=== PATIENT | male | born 1965 | race Caucasian/White ===

== ENCOUNTER 2018-06-16 11:26 | Emergency (ER) | payer BC ==
[2018-06-16 11:41] VITALS: BP 138/100
--- NOTE | 2018-06-16 12:22 | UC ---
Back Pain HPI - HPI Summary HPI Summary: 52 year old male with 8 day history of right low back pain that radiates down his right leg to the level of his knee. States pain began approximately 2 days after shoveling snow. Describes pain as constant sharp pain. He has been taking ibuprofen 800mg every 6 hours with some relief. State he has also taken some of his 's hydrocodone-acetaminophen for severe pain but never more than once a day which has provided some adequate relief from the pain. Reports also used stretching exercises and ice with some improvement in symptoms. He sought treatment from chiropractor once but did not feel this was beneficial. Denies fever, chills, abdominal pain, nausea, vomiting, dysuria, frequency, urgency, hematuria, or loss of bowel or bladder control. - History of Current Complaint Chief Complaint: UCBackPain Stated Complaint: BACK PAIN Time Seen by Provider: 06/16/18 11:56 Pain Intensity: 3 - Allergies/Home Medications Allergies/Adverse Reactions: Allergies Allergy/AdvReac Type Severity Reaction Status Date / Time No Known Allergies Allergy Verified 06/16/18 11:41 Home Medications: Home Medications Atorvastatin* [Lipitor*] 20 mg PO DAILY 06/16/18 [History Confirmed 06/16/18] PMH/Surg Hx/FS Hx/Imm Hx Endocrine History: Dyslipidemia GI/ History: Gastroesophageal Reflux - Surgical History Surgical History: None Surgery Procedure, Year, and Place: right knee reconstruction - Family History Known Family History: Positive: Non-Contributory - Social History Occupation: Employed Full-time Lives: With Family Alcohol Use: Weekly Substance Use Type: None Smoking Status (MU): Never Smoked Tobacco Review of Systems All Other Systems Reviewed And Are Negative: Yes Constitutional: Negative: Fever, Chills Skin: Negative: Rash Respiratory: Negative: Shortness Of Breath, Cough Cardiovascular: Negative: Palpitations, Chest Pain Gastrointestinal: Negative: Abdominal Pain, Vomiting, Diarrhea, Nausea Genitourinary: Negative: Dysuria, Hematuria, Frequency, Urgency Motor: Negative: Weakness Neurovascular: Positive: Decreased Sensation Musculoskeletal: Positive: Other: - See HPI Neurological: Negative: Headache Is Patient Immunocompromised?: No Physical Exam - Summary Physical Exam Summary: GENERAL APPEARANCE: Well developed, well nourished, alert and cooperative, and appears to be in no acute distress. NECK: Neck supple, non-tender without lymphadenopathy. CARDIAC: Normal S1 and S2. No S3, S4 or murmurs. Rhythm is regular. There is no peripheral edema, cyanosis or pallor. Extremities are warm and well perfused. Capillary refill is less than 2 seconds. No carotid bruits. LUNGS: Clear to auscultation and percussion without rales, rhonchi, wheezing or diminished breath sounds. ABDOMEN: Positive bowel sounds. Soft, nondistended, nontender. No guarding or rebound. No masses or splenohepatomegally. No CVA tenderness. MUSKULOSKELETAL: ROM intact to all extremities. No joint erythema or tenderness. Normal muscular development. Normal gait. BACK: Examination of the spine reveals normal gait and posture, no spinal deformity, symmetry of spinal muscles, without tenderness, decreased range of motion or muscular spasm. EXTREMITIES: No significant deformity or joint abnormality. No edema. Peripheral pulses intact. No varicosities. NEUROLOGICAL: Strength symmetric and intact throughout. Reflexes 2+ throughout. Decreased sensation to anterior right upper leg. SKIN: Skin normal color, texture and turgor with no lesions or eruptions. Vital Signs: Initial Vital Signs Temp 98.1 F 06/16/18 11:37 Pulse 62 06/16/18 11:37 Resp 18 06/16/18 11:37 BP 138/100 06/16/18 11:37 Pulse Ox 100 06/16/18 11:37 Back Pain Course/Dx - Course Course Of Treatment: 52 year old male with 8 day history of right low back pain that radiates down his right leg to the level of his knee. States pain began approximately 2 days after shoveling snow. Describes pain as constant sharp pain. He has been taking ibuprofen 800mg every 6 hours with some relief. State he has also taken some of his 's hydrocodone-acetaminophen for severe pain but never more than once a day which has provided some adequate relief from the pain. Reports also used stretching exercises and ice with some improvement in symptoms. He sought treatment from chiropractor once but did not feel this was beneficial. Denies fever, chills, abdominal pain, nausea, vomiting, dysuria, frequency, urgency, hematuria, or loss of bowel or bladder control. Afebrile. Exam unremarkable except for some decreased sensation to his anterior right upper leg. Recommend continued conservative treatment with NSAIDs and Ice/Heat. Will provide him with a short term prescription for hydrocodone-acetaminophen PRN severe pain. The [facility] [employer] [facility] was consulted and safe to prescribe. Reference #: [id number]. He was given a referral to PT for evaluation and treatment. He is to follow up with his PCP or contact the [facility] Physician Referral Service to establish with a PCP locally if symptoms persist. Warning symptoms were reveiwed. Verbalizes understanding and agrees with POC. - Differential Dx/Diagnosis Differential Diagnosis/HQI/PQRI: Herniated Disc, Strain Provider Diagnosis: Sciatica of right side Discharge - Sign-Out/Discharge Documenting (check all that apply): Patient Departure All imaging exams completed and their final reports reviewed: No Studies - Discharge Plan Condition: Stable Disposition: HOME Prescriptions: Hydrocodone/Acetaminophen [Hydrocodone-Acetamin 5-325 mg] 1 each PO Q8HR PRN # 15 tablet MDD 3 PRN Reason: Severe Pain Naproxen [Naproxen 500 mg tab] 500 mg PO Q12HR #30 tablet Patient Education Materials: Sciatica (ED) Referrals: No Primary Care Phys,NOPCP [Primary Care Provider] - [facility] PHYSICIAN REFERRAL [Outside] Additional Instructions: Your history and exam are consistent with a condition called sciatica. Take naproxen 1 tab every 12 hours with food for next 7 days. After 7 days you may take every 12 hours as needed for pain. Take hydrocodone-acetaminophen 5 mg/325 mg 1 tab every 8 hours as needed for severe pain. This will cause drowsiness so you should not take and drive or operate machinery. Avoid alcohol while taking. Use heat, ice, or alternate heat then ice for 15-20 minutes to the affected are at least 4 times a day. I have given you a referral for physical therapy. You will need to call and schedule an appointment with a physical therapist of your choice. Follow up with your primary care provider in [place] or call the [facility] Physician Referral service to establish with a provider locally. You blood pressure was slightly elevated today and it is recommended that you have this rechecked by a primary care provider. Seek immediate medical attention if you develop fever greater than 100.5 F, have abdominal pain, persistent vomiting, weakness in the leg, you are unable to ambulate, lose control of your bowel or bladder, or have any worsening of symptoms. - Billing Disposition and Condition Condition: STABLE Disposition: Home
== END 2018-06-16 12:42 | disposition home or self-care (01) ==
LOC: UCEAST 11:26
DX: M54.31 Sciatica, right side (principal); E78.5 Hyperlipidemia, unspecified
CPT/HCPCS: 99212; G0463